=== PATIENT | male | born 1995 | race Caucasian/White ===

== ENCOUNTER 2020-12-10 22:51 | Emergency (ER) | payer OTHER, BC ==
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
--- NOTE | 2020-12-11 07:50 | CR ---
Left shoulder: 3 views of the left shoulder were obtained. Comparison: No previous shoulder study is available. Acromioclavicular and glenohumeral joints are within normal limits. No fracture or dislocation is seen. Impression: 1. Nothing acute is seen on 3 view left shoulder study. Diagnostic code #1
== END 2020-12-11 00:47 | disposition home or self-care (01) ==
LOC: JD.ED 22:51
DX: S43.402A Unspecified sprain of left shoulder joint, initial encounter (principal); V89.2XXA Person injured in unspecified motor-vehicle accident, traffic, initial encounter; Y92.410 Unspecified street and highway as the place of occurrence of the external cause
CPT/HCPCS: 73030-26-LT; 73030-LT; 99282; 99283-25

== ENCOUNTER 2023-11-28 23:24 | Emergency (ER) | payer OTHER ==
[2023-11-28 23:55] LABS: BASOPHILS ABSOLUTE AUTO 0.1 K/mm3 (0.0-0.2); BASOPHILS PERCENT AUTO 0.5 % (0.0-1.0); EOSINOPHILS ABSOLUTE AUTO 0.2 K/mm3 (0.0-0.4); EOSINOPHILS PERCENT AUTO 1.1 % (0.0-6.0); HEMATOCRIT 43.6 % (42.0-52.0); HEMOGLOBIN 15.1 gm/dl (14.0-18.0); IMMATURE GRAN ABSOLUTE AUTO 0.05 K/mm3 (0.00-0.05); IMMATURE GRAN PERCENT AUTO 0.4 % (0.0-0.4); LYMPHOCYTES ABSOLUTE AUTO 3.3 K/mm3 (1.0-4.8); LYMPHOCYTES PERCENT AUTO 24.1 % (24.0-44.0); MEAN CORPUSCULAR HEMOGLOBIN 31.4 pg (28.0-32.0); MEAN CORPUSCULAR HGB CONC 34.6 g/dl (32.0-36.0); MEAN CORPUSCULAR VOLUME 90.6 fl (83.0-99.0); MEAN PLATELET VOLUME 8.8 fl (9.4-12.4); MONOCYTES ABSOLUTE AUTO 1.3 K/mm3 (0.0-0.8); MONOCYTES PERCENT AUTO 9.8 % (0.0-8.0); NEUTROPHILS ABSOLUTE AUTO 8.8 K/mm3 (1.8-7.7); NEUTROPHILS PERCENT AUTO 64.1 % (41.0-71.0); PLATELET COUNT,PLT 198 K/mm3 (150-400); RED BLOOD CELL COUNT 4.81 M/mm3 (4.52-5.90); WHITE BLOOD CELL COUNT,WBC 13.67 K/mm3 (3.9-11.3)
[2023-11-28] MEDS: Sodium Chloride 0.9% 1,000 ML IV SCH (23:56)
[2023-11-28] MEDS: Sodium Chloride 0.9% 10 ML Syringe FLUSH PRN (23:56)
[2023-11-28] MEDS: HYDROmorphone 0.5 MG/0.5 ML Syringe IVPUSH ONE (23:56)
[2023-11-28] MEDS: Pantoprazole 40 MG Vial IVPUSH ONE (23:56)
[2023-11-28] MEDS: Ondansetron 4 MG/2 ML SDV IVPUSH ONE (23:56)
[2023-11-29 00:12] LABS: A/G RATIO 1.2 (1-2); ALANINE AMINOTRANSFERASE,ALT 22 U/L (16-63); ALBUMIN 3.8 g/dl (3.4-5.0); ALKALINE PHOSPHATASE 96 U/L (46-116); ANION GAP 11.9 (5-15); ASPARTATE AMNIOTRANSFERASE,AST 12 U/L (15-37); BILIRUBIN TOTAL 0.4 mg/dL (0.2-1.0); BLOOD UREA NITROGEN,BUN 15 mg/dL (7-18); C-REACTIVE PROTEIN 0.21 mg/dL (<0.30); CARBON DIOXIDE,CO2 29 mEq/L (21-32); CHLORIDE,CL 105 mEq/L (98-107); ESTIMATED GFR 104 mL/min (>60); GLUCOSE RANDOM 92 mg/dL (70-99); LIPASE 27 U/L (16-77); POTASSIUM,K 3.9 mEq/L (3.5-5.1); SODIUM,NA 142 mEq/L (136-145)
[2023-11-29 00:14] LABS: TROPONIN I HIGH SENSITIVITY < 4 pg/mL (<=76)
[2023-11-29] MEDS: HYDROmorphone 0.5 MG/0.5 ML Syringe IVPUSH ONE (00:59)
[2023-11-29] MEDS: Iopamidol 612 MG/ML 100 ML Bottle IVPUSH ONE (01:09)
== END 2023-11-29 02:21 | disposition home or self-care (01) ==
LOC: JD.ED 23:24
DX: K80.20 Calculus of gallbladder without cholecystitis without obstruction (principal)
CPT/HCPCS: 36415; 71045; 74177; 76705; 80053; 83690; 84484; 85025; 86140; 93005; 96361; 96374; 96375; 96376; 99285; J1170; J2405; J2470; J3490; J7030; Q9967; 93010; 99284

== ENCOUNTER 2024-01-08 07:27 | Emergency (ER) | payer OTHER ==
[2024-01-08 08:56] LABS: BASOPHILS PERCENT AUTO 0.6 % (0.0-1.0); EOSINOPHILS ABSOLUTE AUTO 0.1 K/mm3 (0.0-0.4); EOSINOPHILS PERCENT AUTO 2.1 % (0.0-6.0); HEMATOCRIT 42.9 % (42.0-52.0); HEMOGLOBIN 14.6 gm/dl (14.0-18.0); IMMATURE GRAN ABSOLUTE AUTO 0.03 K/mm3 (0.00-0.05); IMMATURE GRAN PERCENT AUTO 0.5 % (0.0-0.4); LYMPHOCYTES ABSOLUTE AUTO 1.9 K/mm3 (1.0-4.8); LYMPHOCYTES PERCENT AUTO 29.8 % (24.0-44.0); MEAN CORPUSCULAR HEMOGLOBIN 31.3 pg (28.0-32.0); MEAN CORPUSCULAR VOLUME 92.1 fl (83.0-99.0); MEAN PLATELET VOLUME 8.6 fl (9.4-12.4); MONOCYTES ABSOLUTE AUTO 0.6 K/mm3 (0.0-0.8); MONOCYTES PERCENT AUTO 9.5 % (0.0-8.0); NEUTROPHILS ABSOLUTE AUTO 3.8 K/mm3 (1.8-7.7); NEUTROPHILS PERCENT AUTO 57.5 % (41.0-71.0); PLATELET COUNT,PLT 151 K/mm3 (150-400); RED BLOOD CELL COUNT 4.66 M/mm3 (4.52-5.90); WHITE BLOOD CELL COUNT,WBC 6.52 K/mm3 (3.9-11.3)
[2024-01-08] MEDS: Sodium Chloride 0.9% 1,000 ML IV STA (09:16)
[2024-01-08] MEDS: Ondansetron 4 MG/2 ML SDV IVPUSH ONE (09:16)
[2024-01-08] MEDS: HYDROmorphone 0.5 MG/0.5 ML Syringe IVPUSH ONE (09:16)
[2024-01-08] MEDS: Sodium Chloride 0.9% 10 ML Syringe FLUSH PRN (09:16)
[2024-01-08 09:18] LABS: A/G RATIO 1.1 (1-2); ALBUMIN 3.4 g/dl (3.4-5.0); BILIRUBIN TOTAL 0.6 mg/dL (0.2-1.0); BUN/CREATININE RATIO 12.2 (14-18); CALCIUM 8.7 mg/dL (8.5-10.1); CREATININE 0.9 mg/dL (0.7-1.3); EST CRCL DRUG DOSING (CG) 123.92 mL/min; PROTEIN TOTAL,TP 6.4 g/dl (6.4-8.2)
[2024-01-08] MEDS: HYDROmorphone 0.5 MG/0.5 ML Syringe ONE (09:26)
== END 2024-01-08 10:38 | disposition home or self-care (01) ==
LOC: JD.ED 07:27
DX: K80.20 Calculus of gallbladder without cholecystitis without obstruction (principal); K21.9 Gastro-esophageal reflux disease without esophagitis; R73.03 Prediabetes; Z79.899 Other long term (current) drug therapy
CPT/HCPCS: 36415; 76705; 80053; 83690; 85025; 96361; 96374; 96375; 99284; J1170; J2405; J3490; J7030

== ENCOUNTER 2024-01-14 18:57 | Emergency (ER) | payer OTHER ==
[2024-01-14] MEDS: HYDROmorphone 0.5 MG/0.5 ML Syringe IVPUSH ONE ×2 (20:00→21:34)
[2024-01-14] MEDS: Ondansetron 4 MG/2 ML SDV IVPUSH ONE (20:00)
[2024-01-14 20:10] LABS: BASOPHILS ABSOLUTE AUTO 0.1 K/mm3 (0.0-0.2); BASOPHILS PERCENT AUTO 0.5 % (0.0-1.0); EOSINOPHILS ABSOLUTE AUTO 0.1 K/mm3 (0.0-0.4); EOSINOPHILS PERCENT AUTO 1.3 % (0.0-6.0); HEMATOCRIT 42.6 % (42.0-52.0); HEMOGLOBIN 14.5 gm/dl (14.0-18.0); IMMATURE GRAN ABSOLUTE AUTO 0.04 K/mm3 (0.00-0.05); IMMATURE GRAN PERCENT AUTO 0.4 % (0.0-0.4); LYMPHOCYTES ABSOLUTE AUTO 2.6 K/mm3 (1.0-4.8); LYMPHOCYTES PERCENT AUTO 28.1 % (24.0-44.0); MEAN CORPUSCULAR HEMOGLOBIN 31.4 pg (28.0-32.0); MEAN CORPUSCULAR VOLUME 92.2 fl (83.0-99.0); MEAN PLATELET VOLUME 8.9 fl (9.4-12.4); MONOCYTES ABSOLUTE AUTO 0.7 K/mm3 (0.0-0.8); MONOCYTES PERCENT AUTO 7.8 % (0.0-8.0); NEUTROPHILS ABSOLUTE AUTO 5.7 K/mm3 (1.8-7.7); NEUTROPHILS PERCENT AUTO 61.9 % (41.0-71.0); PLATELET COUNT,PLT 153 K/mm3 (150-400); RED BLOOD CELL COUNT 4.62 M/mm3 (4.52-5.90); WHITE BLOOD CELL COUNT,WBC 9.15 K/mm3 (3.9-11.3)
[2024-01-14 20:32] LABS: A/G RATIO 1.2 (1-2); ALBUMIN 3.7 g/dl (3.4-5.0); ANION GAP 9.8 (5-15); BILIRUBIN TOTAL 0.4 mg/dL (0.2-1.0); BUN/CREATININE RATIO 17.5 (14-18); CREATININE 0.8 mg/dL (0.7-1.3); EST CRCL DRUG DOSING (CG) 143.8 mL/min; POTASSIUM,K 3.8 mEq/L (3.5-5.1); PROTEIN TOTAL,TP 6.7 g/dl (6.4-8.2)
[2024-01-14] MEDS: Dicyclomine 20 MG/2 ML SDV IM ONE (21:33)
[2024-01-14] MEDS: Sodium Chloride 0.9% 10 ML Syringe FLUSH PRN (21:35)
== END 2024-01-14 22:46 | disposition home or self-care (01) ==
LOC: JD.ED 18:57
DX: K80.50 Calculus of bile duct without cholangitis or cholecystitis without obstruction (principal); K80.20 Calculus of gallbladder without cholecystitis without obstruction; K21.9 Gastro-esophageal reflux disease without esophagitis; Z79.899 Other long term (current) drug therapy
CPT/HCPCS: 36415; 80053; 83690; 85025; 96372; 96374; 96375; 96376; 99284; J0500; J2405; J3490

== ENCOUNTER 2024-01-18 11:24 | Day surgery (SDC) | payer OTHER ==
[~2024-01-18 11:24] MED LIST: Dexamethasone 4 MG/ML 5 ML MDV ONE; Lidocaine 1% 5 ML VIAL ONE; Midazolam 1 MG/ML 2 ML SDV ONE; Ondansetron 4 MG/2 ML SDV ONE; Propofol 200 MG/20 ML SDV ONE; Rocuronium 50 MG/5 ML Vial ONE; Sodium Chloride 0.9% 10 ML Syringe FLUSH PRN; Sodium Chloride 0.9% 10 ML Syringe FLUSH SCH; fentaNYL 250 MCG/5 ML SDV ONE
[2024-01-18] MEDS ORDERED: Lactated Ringers 1,000 ML ONE (11:55)
[2024-01-18] MEDS ORDERED: ceFAZolin 2 GM Vial ONE (12:10)
[2024-01-18] MEDS ORDERED: dexmedeTOMIDine HCl 200 MCG/2 ML SDV ONE (12:12)
[2024-01-18] MEDS: Gabapentin 300 MG Cap PO ONE (12:29)
[2024-01-18] MEDS: Acetaminophen 325 MG Tab PO ONE (12:29)
[2024-01-18] MEDS ORDERED: HYDROmorphone 0.5 MG/0.5 ML Syringe ONE (12:36)
[2024-01-18] MEDS ORDERED: Ketorolac 30 MG/ML SDV ONE (12:53)
[2024-01-18] MEDS ORDERED: Sugammadex Sodium 200 MG/2 ML VIAL IV ONE (12:57)
[2024-01-18] MEDS: Lactated Ringers 1,000 ML IV SCH (13:25)
[2024-01-18] MEDS: Bupivacaine 0.5% 30 ML SDV ONE (13:35)
[2024-01-18] MEDS: EPINEPHrine 1 MG/ML SDV ONE (13:35)
[2024-01-18] MEDS: Lidocaine 1% 30 ML SDV ONE (13:35)
[2024-01-18] MEDS ORDERED: Ondansetron 4 MG/2 ML SDV IVPUSH PRN (14:42)
[2024-01-18] MEDS: HYDROmorphone 0.5 MG/0.5 ML Syringe IVPUSH PRN (14:48)
[2024-01-18] MEDS: fentaNYL 100 MCG/2 ML SDV IVPUSH PRN (15:00)
[2024-01-18] MEDS ORDERED: Acetaminophen/oxyCODONE 325-5 MG Tab PO PRN (15:25)
== END 2024-01-18 16:40 | disposition home or self-care (01) ==
LOC: JD.SDS 11:24
PROVIDERS: ATTEND Surgery
DX: K80.10 Calculus of gallbladder with chronic cholecystitis without obstruction (principal); E78.5 Hyperlipidemia, unspecified; E66.01 Morbid (severe) obesity due to excess calories; R73.03 Prediabetes; D50.9 Iron deficiency anemia, unspecified; K21.9 Gastro-esophageal reflux disease without esophagitis; F17.290 Nicotine dependence, other tobacco product, uncomplicated; Z79.899 Other long term (current) drug therapy
CPT/HCPCS: 47562; A9270; J0171; J0665; J0690; J1100; J1171; J1885; J2250; J2405; J2704; J3010; J3490; J7120; 00790